=== PATIENT | female | born 1945 | race Caucasian/White ===

== ENCOUNTER → 2019-03-19 | Outpatient (REF) | payer MEDICARE, BC ==
[2019-03-19 18:21] LABS: ALBUMIN 3.8 GM/DL (3.2-5.2); ALT/SGPT 28 U/L (12-78); BILIRUBIN,TOTAL 0.5 MG/DL (0.2-1.0); BLOOD UREA NITROGEN 17 MG/DL (7-18); C REACTIVE PROTEIN QUANTITATIV < 0.30 MG/DL (0.00-0.30); CARBON DIOXIDE LEVEL 32 MEQ/L (21-32); CHLORIDE LEVEL 104 MEQ/L (98-107); CREATININE FOR GFR 0.88 MG/DL (0.55-1.30); FREE T4 0.97 NG/DL (0.76-1.46); GLOMERULAR FILTRATION RATE > 60.0 (>39); GLUCOSE, FASTING 86 MG/DL (70-100); POTASSIUM SERUM 3.8 MEQ/L (3.5-5.1); RHEUMATOID FACTOR QUANT < 10.0 IU/ML (<15.0); SODIUM LEVEL 139 MEQ/L (136-145); TOTAL PROTEIN 7.2 GM/DL (6.4-8.2)
[2019-03-19 18:32] LABS: APPEARANCE, URINE CLEAR (CLEAR); BACTERIA, URINE AUTO NEGATIVE (NEGATIVE); BILIRUBIN, URINE AUTO NEGATIVE (NEGATIVE); BLOOD, URINE BLOOD 1+ (NEGATIVE); COLOR, URINE YELLOW (YELLOW); GLUCOSE, URINE (UA) AUTO NEGATIVE (NEGATIVE); KETONE, URINE AUTO NEGATIVE (NEGATIVE); LEUKOCYTE ESTERASE, URINE AUTO 1+ (NEGATIVE); MUCUS, URINE SMALL (NEGATIVE); NITRITE, URINE AUTO NEGATIVE (NEGATIVE); PROTEIN, URINE AUTO NEGATIVE (NEGATIVE); RBC, URINE AUTO 4 /HPF (0-3); SPECIFIC GRAVITY URINE AUTO 1.008 (1.002-1.035); SQUAMOUS EPITHELIAL CELL UR AU 0 /HPF (0-6); UROBILINOGEN, URINE AUTO 0.2 mg/dL (0.0-2.0); WBC, URINE AUTO 4 /HPF (0-3)
[2019-03-19 18:58] LABS: BASO % 0.8 % (0.0-1.0); EOS # 0.2 10^3/uL (0.0-0.50); EOS % 4.6 % (0.0-3.0); HEMATOCRIT 37.1 % (36.0-47.0); HEMOGLOBIN 12.8 g/dl (12.0-15.5); LYMPH # 1.7 10^3/uL (1.5-4.5); LYMPH % 34.1 % (24.0-44.0); MEAN CORPUSCULAR HEMOGLOBIN 33.2 pg (27.0-33.0); MEAN CORPUSCULAR HGB CONC 34.5 g/dl (32.0-36.5); MEAN CORPUSCULAR VOLUME 96.1 fl (80.0-96.0); MONO # 0.5 10^3/uL (0.0-0.8); MONO % 10.4 % (0.0-5.0); NEUTROPHILS # 2.5 10^3/uL (1.8-7.7); NEUTROPHILS % 50.1 % (36.0-66.0); PLATELET COUNT, AUTOMATED 200 10^3/uL (150-450); RED BLOOD COUNT 3.86 10^6/uL (4.00-5.40)
[2019-03-19 19:02] LABS: TOTAL 25(OH) VITAMIN D 36.5 NG/ML (30.0-100.0); VITAMIN B12 LEVEL 308 PG/ML
[2019-03-19 19:04] LABS: FOLATE 10.5 NG/ML
[2019-03-19 19:26] LABS: HEMOGLOBIN A1c 5.9 %
[2019-03-19 19:56] LABS: ERYTHROCYTE SEDIMENTATION RATE 11 mm/hr (0-30)
[2019-03-22 00:06] LABS: ANA (HEP2) Positive (.); CYCLIC CITRULLINATED PEPTIDE 18 units (0-19); Lyme Disease IgG/IgM Antibodie <0.91 ISR (0.00-0.90); Lyme Disease IgM Ab Quantitati <0.80 index (0.00-0.79)
== END ==
LOC: M SFHCCAPE 07:38
PROVIDERS: ATTEND Physician Assistant
DX: M25.50 Pain in unspecified joint (principal); R53.82 Chronic fatigue, unspecified

== ENCOUNTER 2020-02-28 19:54 | Inpatient (IN) | payer MEDICARE, BC ==
[2020-02-29] MEDS ORDERED: MORPHINE 2 MG/ML 1ML VIAL (J2270) ONE (03:19)
[2020-02-29] MEDS ORDERED: MORPHINE 2 MG/ML 1ML VIAL (J2270) As Ordered ONE (03:19)
[2020-02-29] MEDS ORDERED: **hydrALAZINE HCL** 25 MG TAB ONE ×2 (03:19→13:08)
[2020-02-29] MEDS ORDERED: **hydrALAZINE HCL** 25 MG TAB As Ordered ONE (03:19)
[2020-02-29] MEDS ORDERED: ASPIRIN 81 MG ENTERIC TAB ONE (08:53)
[2020-02-29] MEDS ORDERED: VITAMIN D 1,000 INTERNATIONAL UNITS TABLET ONE ×2 (08:53→22:04)
[2020-02-29] MEDS ORDERED: hydroCHLOROthiazide 25 MG TAB ONE (08:53)
[2020-02-29] MEDS ORDERED: DOCUSATE SODIUM 100 MG CAP ONE ×2 (08:53→21:53)
[2020-02-29] MEDS ORDERED: CitaloPRAM (CeleXA) 20 MG TAB ONE (08:53)
[2020-02-29] MEDS ORDERED: SPIRONOLACTONE 12.5MG PER 1/2 TABLET ONE (08:53)
[2020-02-29] MEDS ORDERED: NORCO, ANEXSIA 5/325MG TABLET (HYDROcodone/ACETAMINOPHEN) ONE (09:21)
[2020-02-29] MEDS ORDERED: HEPARIN SOD (PORCINE) 5000UNITS/ML 1ML VIAL/SYRINGE ONE ×2 (13:08→21:53)
[2020-02-29] MEDS ORDERED: VALSARTAN 80 MG TAB (DIOVAN) ONE (13:08)
[2020-02-29] MEDS ORDERED: KETOROLAC 30 MG/ML 1ML VIAL ONE (21:53)
[2020-02-29] MEDS ORDERED: CYCLOBENZAPRINE 10MG TABLET ONE (21:53)
[2020-02-29] MEDS ORDERED: HEPARIN SOD (PORCINE) 5000UNITS/ML 1ML VIAL/SYRINGE As Ordered ONE (21:53)
[2020-02-29] MEDS ORDERED: KETOROLAC 30 MG/ML 1ML VIAL As Ordered ONE (21:53)
[2020-02-29] MEDS ORDERED: DOCUSATE SODIUM 100 MG CAP As Ordered ONE (21:53)
[2020-02-29] MEDS ORDERED: CYCLOBENZAPRINE 10MG TABLET As Ordered ONE (21:54)
[2020-02-29] MEDS ORDERED: VITAMIN D 1,000 INTERNATIONAL UNITS TABLET As Ordered ONE (22:04)
[2020-03-01] MEDS ORDERED: **hydrALAZINE HCL** 25 MG TAB As Ordered ONE (05:44)
[2020-03-01] MEDS ORDERED: HEPARIN SOD (PORCINE) 5000UNITS/ML 1ML VIAL/SYRINGE As Ordered ONE ×3 (05:44→20:32)
[2020-03-01] MEDS ORDERED: HEPARIN SOD (PORCINE) 5000UNITS/ML 1ML VIAL/SYRINGE ONE ×3 (05:44→20:31)
[2020-03-01] MEDS ORDERED: hydroCHLOROthiazide 25 MG TAB ONE (08:38)
[2020-03-01] MEDS ORDERED: CYCLOBENZAPRINE 10MG TABLET ONE ×3 (08:38→20:31)
[2020-03-01] MEDS ORDERED: CitaloPRAM (CeleXA) 20 MG TAB ONE (08:38)
[2020-03-01] MEDS ORDERED: VALSARTAN 80 MG TAB (DIOVAN) ONE (08:38)
[2020-03-01] MEDS ORDERED: DOCUSATE SODIUM 100 MG CAP ONE ×2 (08:38→20:31)
[2020-03-01] MEDS ORDERED: DOCUSATE SODIUM 100 MG CAP As Ordered ONE ×2 (08:38→20:31)
[2020-03-01] MEDS ORDERED: SPIRONOLACTONE 12.5MG PER 1/2 TABLET ONE (08:38)
[2020-03-01] MEDS ORDERED: VITAMIN D 1,000 INTERNATIONAL UNITS TABLET ONE ×2 (08:38→20:31)
[2020-03-01] MEDS ORDERED: ASPIRIN 81 MG CHEW TABLET ONE (08:38)
[2020-03-01] MEDS ORDERED: CitaloPRAM (CeleXA) 20 MG TAB As Ordered ONE (08:39)
[2020-03-01] MEDS ORDERED: ASPIRIN 81 MG CHEW TABLET As Ordered ONE (08:39)
[2020-03-01] MEDS ORDERED: hydroCHLOROthiazide 25 MG TAB As Ordered ONE (08:39)
[2020-03-01] MEDS ORDERED: CYCLOBENZAPRINE 10MG TABLET As Ordered ONE ×3 (08:39→20:36)
[2020-03-01] MEDS ORDERED: SPIRONOLACTONE 12.5MG PER 1/2 TABLET As Ordered ONE (08:39)
[2020-03-01] MEDS ORDERED: VALSARTAN 80 MG TAB (DIOVAN) As Ordered ONE (08:40)
[2020-03-01] MEDS ORDERED: VITAMIN D 1,000 INTERNATIONAL UNITS TABLET As Ordered ONE ×2 (08:41→20:31)
[2020-03-01] MEDS ORDERED: KETOROLAC 30 MG/ML 1ML VIAL As Ordered ONE (20:31)
[2020-03-01] MEDS ORDERED: KETOROLAC 30 MG/ML 1ML VIAL ONE (20:31)
[2020-03-02] MEDS ORDERED: HEPARIN SOD (PORCINE) 5000UNITS/ML 1ML VIAL/SYRINGE ONE (05:32)
[2020-03-02] MEDS ORDERED: HEPARIN SOD (PORCINE) 5000UNITS/ML 1ML VIAL/SYRINGE As Ordered ONE (05:32)
[2020-03-02] MEDS ORDERED: VITAMIN D 1,000 INTERNATIONAL UNITS TABLET As Ordered ONE (08:41)
[2020-03-02] MEDS ORDERED: VITAMIN D 1,000 INTERNATIONAL UNITS TABLET ONE (08:41)
[2020-03-02] MEDS ORDERED: CitaloPRAM (CeleXA) 20 MG TAB ONE (08:41)
[2020-03-02] MEDS ORDERED: DOCUSATE SODIUM 100 MG CAP ONE (08:41)
[2020-03-02] MEDS ORDERED: VALSARTAN 80 MG TAB (DIOVAN) ONE (08:41)
[2020-03-02] MEDS ORDERED: CYCLOBENZAPRINE 10MG TABLET As Ordered ONE (08:41)
[2020-03-02] MEDS ORDERED: ASPIRIN 81 MG ENTERIC TAB ONE (08:41)
[2020-03-02] MEDS ORDERED: hydroCHLOROthiazide 25 MG TAB ONE (08:41)
[2020-03-02] MEDS ORDERED: SPIRONOLACTONE 12.5MG PER 1/2 TABLET As Ordered ONE (08:41)
[2020-03-02] MEDS ORDERED: DOCUSATE SODIUM 100 MG CAP As Ordered ONE (08:41)
[2020-03-02] MEDS ORDERED: CitaloPRAM (CeleXA) 20 MG TAB As Ordered ONE (08:41)
[2020-03-02] MEDS ORDERED: CYCLOBENZAPRINE 10MG TABLET ONE (08:41)
[2020-03-02] MEDS ORDERED: SPIRONOLACTONE 12.5MG PER 1/2 TABLET ONE (08:41)
[2020-03-02] MEDS ORDERED: hydroCHLOROthiazide 25 MG TAB As Ordered ONE (08:42)
[2020-03-02] MEDS ORDERED: ASPIRIN 81 MG ENTERIC TAB As Ordered ONE (08:42)
[2020-03-02] MEDS ORDERED: VALSARTAN 80 MG TAB (DIOVAN) As Ordered ONE (08:42)
[2020-03-02] MEDS ORDERED: **hydrALAZINE HCL** 25 MG TAB As Ordered ONE (12:51)
[2020-04-04 21:36] LABS: BASO % 0.5 % (0.0-1.0); EOS # 0.3 10^3/uL (0.0-0.5); EOS % 3.7 % (0.0-3.0); HEMATOCRIT 33.4 % (36.0-47.0); HEMOGLOBIN 11.6 g/dl (12.0-15.5); LYMPH # 1.5 10^3/uL (1.5-5.0); LYMPH % 17.4 % (24.0-44.0); MEAN CORPUSCULAR HEMOGLOBIN 32.4 pg (27.0-33.0); MEAN CORPUSCULAR HGB CONC 34.7 g/dl (32.0-36.5); MEAN CORPUSCULAR VOLUME 93.3 fl (80.0-96.0); MONO # 0.8 10^3/uL (0.0-0.8); MONO % 9.7 % (0.0-5.0); NEUTROPHILS # 5.8 10^3/uL (1.5-8.5); NEUTROPHILS % 68.3 % (36.0-66.0); PLATELET COUNT, AUTOMATED 211 10^3/uL (150-450); RED BLOOD COUNT 3.58 10^6/uL (4.00-5.40); WHITE BLOOD COUNT 8.5 10^3/uL (4.0-10.0)
[2020-04-04 21:52] LABS: INR 1.09; PARTIAL THROMBOPLASTIN TIME 31.2 SECONDS (25.0-38.4); PROTHROMBIN TIME 14.3 SECONDS (11.8-14.0)
--- NOTE | 2020-04-19 10:37 | REP ---
LEFT TIB-FIB SERIES: FOUR VIEWS HISTORY: Injury in a fall. FINDINGS: Four views of the left tibia and fibula demonstrate diffuse osteopenia. No tibial or fibula fracture is appreciated. No joint effusion is seen at the knee. 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 IMPRESSION: No acute fracture or subluxation seen. MTDD
--- NOTE | 2020-04-19 10:38 | REP ---
CHEST X-RAY: 2-VIEWS HISTORY: Injury in a fall. COMPARISON: Chest x-ray from 04/18/10. This report was delayed due to a malware attack on this facility. FINDINGS: Monitoring electrodes overlie the chest. The lungs are well-inflated and clear. The pleural angles are sharp. The cardiomediastinal silhouette is unremarkable. No bony abnormality is seen. There are clips on the right upper quadrant of the abdomen. IMPRESSION: No active cardiopulmonary disease. MTDD
[2020-04-21 10:22] LABS: HEMATOCRIT 32.3 % (36.0-47.0); HEMOGLOBIN 11.4 g/dl (12.0-15.5); MEAN CORPUSCULAR HGB CONC 35.3 g/dl (32.0-36.5); MEAN CORPUSCULAR VOLUME 93.6 fl (80.0-96.0); PLATELET COUNT, AUTOMATED 209 10^3/uL (150-450); RED BLOOD COUNT 3.45 10^6/uL (4.00-5.40); WHITE BLOOD COUNT 6.9 10^3/uL (4.0-10.0)
[2020-04-21 11:02] LABS: HEMATOCRIT 31.8 % (36.0-47.0); HEMOGLOBIN 11.1 g/dl (12.0-15.5); MEAN CORPUSCULAR HEMOGLOBIN 32.7 pg (27.0-33.0); MEAN CORPUSCULAR HGB CONC 34.9 g/dl (32.0-36.5); MEAN CORPUSCULAR VOLUME 93.8 fl (80.0-96.0); PLATELET COUNT, AUTOMATED 194 10^3/uL (150-450); RED BLOOD COUNT 3.39 10^6/uL (4.00-5.40); WHITE BLOOD COUNT 4.9 10^3/uL (4.0-10.0)
[2020-05-10 00:13] LABS: ALBUMIN 3.4 GM/DL (3.2-5.2); ALT/SGPT 20 U/L (12-78); BILIRUBIN,DIRECT 0.2 MG/DL (0.0-0.2); BILIRUBIN,TOTAL 0.4 MG/DL (0.2-1.0); BLOOD UREA NITROGEN 15 MG/DL (7-18); CALCIUM LEVEL 8.5 MG/DL (8.8-10.2); CARBON DIOXIDE LEVEL 29 MEQ/L (21-32); CHLORIDE LEVEL 100 MEQ/L (98-107); CK-MB VALUE MASS 1.7 NG/ML (<3.6); CPK CREATINE PHOSPHOKINASE 129 U/L (26-192); CREATININE FOR GFR 0.96 MG/DL (0.55-1.30); GLOMERULAR FILTRATION RATE > 60.0 (>39); GLUCOSE, FASTING 106 MG/DL (70-100); MB/CK RELATIVE INDEX 1.32 (< OR =4); POTASSIUM SERUM 3.5 MEQ/L (3.5-5.1); SODIUM LEVEL 133 MEQ/L (136-145); TOTAL PROTEIN 6.4 GM/DL (6.4-8.2)
[2020-05-25 10:19] LABS: ALBUMIN 3.3 GM/DL (3.2-5.2); BILIRUBIN,TOTAL 0.6 MG/DL (0.2-1.0); CALCIUM LEVEL 8.7 MG/DL (8.8-10.2); CREATININE FOR GFR 1.02 MG/DL (0.55-1.30); GLOMERULAR FILTRATION RATE 56.6 (>39); MAGNESIUM LEVEL 1.9 MG/DL (1.8-2.4); POTASSIUM SERUM 3.8 MEQ/L (3.5-5.1); TOTAL PROTEIN 6.3 GM/DL (6.4-8.2)
[2020-05-28 08:44] LABS: CALCIUM LEVEL 8.7 MG/DL (8.8-10.2); CHOLESTEROL RISK RATIO 3.184 (<5); GLOMERULAR FILTRATION RATE 57.9 (>39); HEMOGLOBIN A1c 5.6 %; MAGNESIUM LEVEL 1.7 MG/DL (1.8-2.4); PHOSPHORUS LEVEL 2.7 MG/DL (2.5-4.9); POTASSIUM SERUM 3.7 MEQ/L (3.5-5.1); TROPONIN I 0.44 NG/ML (< 0.10)
== END 2020-03-02 10:15 | disposition home or self-care (01) | DRG 563 ==
LOC: M ED 19:54 → M MS5PR 02-29 02:00
PROVIDERS: ADMIT Internal Medicine; ATTEND Internal Medicine
DX: S82.492A Other fracture of shaft of left fibula, initial encounter for closed fracture (principal); F32.9 Major depressive disorder, single episode, unspecified; Z88.2 Allergy status to sulfonamides; Z88.8 Allergy status to other drugs, medicaments and biological substances; Z85.828 Personal history of other malignant neoplasm of skin; E55.9 Vitamin D deficiency, unspecified; R55 Syncope and collapse; I16.0 Hypertensive urgency; W10.9XXA Fall (on) (from) unspecified stairs and steps, initial encounter; Y92.9 Unspecified place or not applicable; Z79.82 Long term (current) use of aspirin; Z79.899 Other long term (current) drug therapy